=== PATIENT | female | born 1985 | race Caucasian/White ===

== ENCOUNTER 2022-08-28 06:58 | Emergency (ER) | payer OTHER ==
[2022-08-28] MEDS ORDERED: Albuterol/Ipratropium 3.0-0.5 MG/3 ML Neb Soln NEB ONE (07:27)
[2022-08-28] MEDS ORDERED: Lactated Ringers 1,000 ML IV SCH (07:30)
[2022-08-28 07:35] LABS: BASOPHILS ABSOLUTE AUTO 0.1 K/uL (0.0-0.1); BASOPHILS PERCENT AUTO 0.4 % (0.0-1.5); EOSINOPHILS ABSOLUTE AUTO 0.1 K/uL (0.0-0.7); EOSINOPHILS PERCENT AUTO 0.9 % (0.0-7.0); HEMATOCRIT 36.2 % (36.0-46.0); HEMOGLOBIN 11.7 g/dL (12.0-16.0); LYMPHOCYTES ABSOLUTE AUTO 4.9 K/uL (0.6-2.4); LYMPHOCYTES PERCENT AUTO 38.5 % (16.0-40.0); MEAN CORPUSCULAR HEMOGLOBIN 19.7 pg (27.0-32.0); MEAN CORPUSCULAR HGB CONC 32.3 g/dL (31.0-37.0); MEAN CORPUSCULAR VOLUME 60.8 fL (80.0-98.0); MONOCYTES ABSOLUTE AUTO 1.1 K/uL (0.0-0.8); MONOCYTES PERCENT AUTO 8.3 % (0.0-15.0); NEUTROPHILS ABSOLUTE AUTO 6.6 K/uL (1.4-5.7); NEUTROPHILS PERCENT AUTO 51.9 % (48.0-80.0); NRBC ABSOLUTE 0 K/uL; NRBC PERCENT 0.4 /100WBC; RED BLOOD CELL COUNT 5.95 M/uL (4.30-5.90); WHITE BLOOD CELL COUNT,WBC 12.71 K/uL (4.0-11.0)
[2022-08-28 07:41] LABS: PLATELET COUNT,PLT 268 K/uL (150-400)
[2022-08-28 07:51] LABS: A/G RATIO 1.1 (0.9-1.6); BILIRUBIN TOTAL 0.7 mg/dL (0.2-1.0); CALCIUM 8.5 mg/dL (8.5-10.1); CREATININE 1.1 mg/dL (0.6-1.0); EST CRCL DRUG DOSING (CG) 67.46 mL/min; POTASSIUM,K 3.2 mmol/L (3.5-5.1); PROTEIN TOTAL,TP 7.7 g/dL (6.4-8.2)
[2022-08-28 08:11] LABS: CORONAVIRUS COVID-19 NAA NEGATIVE (NEGATIVE); INFLUENZA A NAA NEGATIVE (NEGATIVE); INFLUENZA B NAA NEGATIVE (NEGATIVE); RESPIRATORY SYNCYTIAL VIR NAA NEGATIVE (NEGATIVE)
== END 2022-08-28 12:16 | disposition home or self-care (01) ==
LOC: MW.ED 06:58
DX: R05.9 Cough, unspecified (principal); Z20.822 Contact with and (suspected) exposure to COVID-19
CPT/HCPCS: 0241U; 36415; 71045; 71260; 80053; 84703; 85025; 93005; 96360; 99284; J7120; J7620-GY

== ENCOUNTER 2022-08-30 10:04 | Emergency (ER) | payer SELFPAY ==
[2022-08-30] MEDS ORDERED: Sodium Chloride 0.9% 1,000 ML IV ONE (11:04)
[2022-08-30] MEDS ORDERED: Famotidine 20 MG/2 ML SDV IVPUSH ONE (11:04)
[2022-08-30] MEDS ORDERED: methylPREDNISolone Sodium Succinate 125 MG/2 ML SDV IVPUSH ONE (11:04)
[2022-08-30] MEDS ORDERED: diphenhydrAMINE 50 MG/ML SDV IVPUSH ONE (11:04)
[2022-08-30 11:22] LABS: BASOPHILS PERCENT AUTO 0.3 % (0.0-1.5); EOSINOPHILS ABSOLUTE AUTO 0.4 K/uL (0.0-0.7); EOSINOPHILS PERCENT AUTO 2.3 % (0.0-7.0); HEMATOCRIT 36.9 % (36.0-46.0); LYMPHOCYTES ABSOLUTE AUTO 4.2 K/uL (0.6-2.4); LYMPHOCYTES PERCENT AUTO 26.3 % (16.0-40.0); MEAN CORPUSCULAR HEMOGLOBIN 19.8 pg (27.0-32.0); MEAN CORPUSCULAR HGB CONC 32.5 g/dL (31.0-37.0); MEAN CORPUSCULAR VOLUME 60.9 fL (80.0-98.0); MONOCYTES ABSOLUTE AUTO 1.3 K/uL (0.0-0.8); MONOCYTES PERCENT AUTO 8.3 % (0.0-15.0); NEUTROPHILS PERCENT AUTO 62.8 % (48.0-80.0); NRBC ABSOLUTE 0 K/uL; NRBC PERCENT 0.4 /100WBC; PLATELET COUNT,PLT 293 K/uL (150-400); RED BLOOD CELL COUNT 6.06 M/uL (4.30-5.90); WHITE BLOOD CELL COUNT,WBC 15.95 K/uL (4.0-11.0)
[2022-08-30 11:48] LABS: A/G RATIO 1.2 (0.9-1.6); ALBUMIN 4.2 g/dL (3.4-5.0); BILIRUBIN TOTAL 0.8 mg/dL (0.2-1.0); CALCIUM 9.2 mg/dL (8.5-10.1); CARBON DIOXIDE,CO2 23.1 mmol/L (21.0-32.0); CREATININE 1.2 mg/dL (0.6-1.0); EST CRCL DRUG DOSING (CG) 61.84 mL/min; POTASSIUM,K 4.4 mmol/L (3.5-5.1); PROTEIN TOTAL,TP 7.8 g/dL (6.4-8.2)
[2022-08-30] MEDS ORDERED: LORazepam 1 MG Tab PO ONE (12:40)
[2022-08-30 13:01] LABS: APPEARANCE,URINE CLOUDY; BILIRUBIN,URINE NEGATIVE (NEGATIVE); COLOR,URINE YELLOW; GLUCOSE,URINE NEGATIVE (NEGATIVE); KETONES,URINE NEGATIVE (NEGATIVE); LEUKOCYTE ESTERASE,URINE NEGATIVE (NEGATIVE); NITRITE,URINE NEGATIVE (NEGATIVE); OCCULT BLOOD,URINE NEGATIVE (NEGATIVE); PH,URINE 6.5 (5.0-8.0); PROTEIN,URINE NEGATIVE (NEGATIVE); UROBILINOGEN,URINE 0.2 EU/dL (<2.0)
[2022-08-30 14:19] LABS: AMPHETAMINES SCREEN, URINE NEGATIVE (CUTOFF=500); BARBITURATE SCREEN,URINE NEGATIVE (CUTOFF=200); BENZODIAZEPINES SCREEN,URINE PRESUMPTIVE POSITIVE (CUTOFF=150); BUPRENORPHINE SCREEN,URINE NEGATIVE (CUTOFF=10); METHADONE SCREEN, URINE NEGATIVE (CUTOFF=200); METHAMPHETAMINES SCREEN, URINE NEGATIVE (CUTOFF=500); OXYCODONE SCREEN,URINE NEGATIVE (CUT0FF=100); PCP SCREEN,URINE NEGATIVE (CUTOFF=25); PROPOXYPHENE SCREEN,URINE NEGATIVE (CUTOFF=300); THC SCREEN,URINE 20 NG/ML NEGATIVE (CUTOFF=50)
== END 2022-08-30 12:58 | disposition home or self-care (01) ==
LOC: MW.ED 10:04
DX: F41.9 Anxiety disorder, unspecified (principal); T78.40XD Allergy, unspecified, subsequent encounter
CPT/HCPCS: 36415; 71045; 80053; 80305; 81003; 85025; 93005; 96361; 96374; 96375; 99284; A9270; J1200; J2930; J3490; J7030; 93010; 99283

== ENCOUNTER 2023-01-02 08:56 | Day surgery (SDC) | payer BC ==
[~2023-01-02 08:56] MED LIST: Lactated Ringers 1,000 ML IV SCH
[2023-01-02] MEDS ORDERED: propofoL 50 ML ONE (09:17)
[2023-01-02] MEDS ORDERED: Lidocaine 2% 5 ML SDV ONE (09:18)
[2023-01-02] MEDS ORDERED: Lactated Ringers 1,000 ML IV SCH (11:00)
== END 2023-01-02 11:26 | disposition home or self-care (01) ==
LOC: MW.SDS 08:56
PROVIDERS: ATTEND Surgery
DX: K31.89 Other diseases of stomach and duodenum (principal); K29.50 Unspecified chronic gastritis without bleeding; K21.9 Gastro-esophageal reflux disease without esophagitis; I10 Essential (primary) hypertension; J04.10 Acute tracheitis without obstruction; F41.9 Anxiety disorder, unspecified; E66.9 Obesity, unspecified; E55.9 Vitamin D deficiency, unspecified; F32.A Depression, unspecified; F17.290 Nicotine dependence, other tobacco product, uncomplicated; Z68.33 Body mass index [BMI] 33.0-33.9, adult; Z79.899 Other long term (current) drug therapy
CPT/HCPCS: 43239; 81025; J2704; J7120; 00731; J3490